=== PATIENT | male | born 1970 | race Caucasian/White ===

== ENCOUNTER 2020-07-25 15:44 | Outpatient (RCR) | payer OTHER | END 2020-08-02 14:43 | disposition home or self-care (01) | LOC: WSOH 15:44 | DX: S46.012A Strain of muscle(s) and tendon(s) of the rotator cuff of left shoulder, initial encounter (principal); Y99.0 Civilian activity done for income or pay | CPT/HCPCS: J1030 ==

== ENCOUNTER → 2020-08-25 | Outpatient (CLI) | payer OTHER, BC | LOC: COL.RAD 12:03 | DX: M19.012 Primary osteoarthritis, left shoulder (principal); M75.02 Adhesive capsulitis of left shoulder; S46.012D Strain of muscle(s) and tendon(s) of the rotator cuff of left shoulder, subsequent encounter ==

== ENCOUNTER 2020-08-30 14:45 | Outpatient (RCR) | payer BC | END 2020-09-02 10:18 | LOC: WSOH 14:45 | DX: M19.012 Primary osteoarthritis, left shoulder (principal); M75.02 Adhesive capsulitis of left shoulder; E05.90 Thyrotoxicosis, unspecified without thyrotoxic crisis or storm; F17.210 Nicotine dependence, cigarettes, uncomplicated; Y99.0 Civilian activity done for income or pay ==

== ENCOUNTER → 2020-08-31 | Outpatient (CLI) | payer BC | LOC: COL.RAD 13:53 | DX: E04.2 Nontoxic multinodular goiter (principal); E05.90 Thyrotoxicosis, unspecified without thyrotoxic crisis or storm ==

== ENCOUNTER 2020-09-22 14:56 | Outpatient (RCR) | payer OTHER | END 2020-10-05 09:10 | disposition home or self-care (01) | LOC: WSPT 14:56 | DX: M19.012 Primary osteoarthritis, left shoulder (principal); M75.02 Adhesive capsulitis of left shoulder ==

== ENCOUNTER → 2020-10-13 | Outpatient (CLI) | payer BC | LOC: COL.RAD 12:58 | DX: E05.90 Thyrotoxicosis, unspecified without thyrotoxic crisis or storm (principal) | CPT/HCPCS: A9516 ==

== ENCOUNTER 2020-10-21 08:00 | Outpatient (RCR) | payer OTHER | END 2020-12-05 | disposition home or self-care (01) | LOC: WSPT | DX: Z98.890 Other specified postprocedural states (principal) ==

== ENCOUNTER → 2023-03-07 | Outpatient (CLI) | payer BC | LOC: COL.RAD 14:28 | DX: R91.8 Other nonspecific abnormal finding of lung field (principal) ==